=== PATIENT | female | born 1995 | race Caucasian/White ===

== ENCOUNTER 2022-01-30 07:47 | Emergency (ER) | payer BC, SELFPAY ==
[2022-01-30] MEDS ORDERED: HYDROcodone/Acetaminophen 5/325 mg Tablet ONE (08:53)
== END 2022-01-30 08:56 | disposition home or self-care (01) ==
LOC: ERS 07:47
DX: S93.402A Sprain of unspecified ligament of left ankle, initial encounter (principal); Z86.711 Personal history of pulmonary embolism; X50.1XXA Overexertion from prolonged static or awkward postures, initial encounter